=== PATIENT | female | born 1980 | race Caucasian/White ===

== ENCOUNTER 2018-01-10 10:56 | Emergency (ER) | payer BC, OTHER ==
--- NOTE | 2018-01-10 11:15 | ED ---
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 This pt admits she was having to push/pull and her core was jostled. She developed acute lower back pain immediately after the event. This has been getting progressively worse despite her trying to rest. She feels a swelling of her tissue over this area which is tender to touch. Pain is also worse here with forward flexion and Valsalva such as sneezing, coughing, and engaging her abdominal muscles. When these actions happen, she gets an acute sharp shooting pain however denies radicular pain into her buttocks or lower extremities. Denies numbness tingling or weakness in the lower extremities and no change in bowel or bladder habits. She has a history of lower back muscle spasms which she treats with half at dose of Xanax as needed. This treatment usually takes care of her back spasm issues however has not been improving her back pain since acute injury this week. She's also tried ibuprofen and ice without relief. She is concerned something more serious could be at play such as stenosis or disc herniation. Last menstrual period -she is finishing now. has a vasectomy. - History of Current Complaint Chief Complaint: EDBackInjuryPain Stated Complaint: BACK PAIN Time Seen by Provider: 01/10/18 11:07 Hx Obtained From: Patient Pain Intensity: 6 - Allergies/Home Medications Allergies/Adverse Reactions: Allergies Allergy/AdvReac Type Severity Reaction Status Date / Time ibuprofen Allergy Bleeding Verified 01/10/18 11:30 Home Medications: Home Medications ALPRAZolam TAB* [Xanax TAB*] 0.5 mg PO TID PRN 01/10/18 [History Confirmed 01/10] Citalopram TAB* [CeleXA TAB*] 20 mg PO DAILY 01/10/18 [History Confirmed ] Levothyroxine TAB* [Synthroid TAB*] 250 mcg PO DAILY 01/10/18 [History Confirmed 01/10/18] Lisinopril TAB* [Prinivil TAB*] 5 mg PO DAILY 01/10/18 [History Confirmed ] Multivitamins/Minerals TAB* [Theragran/minerals TAB*] 1 tab PO DAILY 01/10/18 [ History Confirmed 01/10/18] Zolpidem TAB* [Ambien TAB*] 10 mg PO BEDTIME 01/10/18 [History Confirmed ] PMH/Surg Hx/FS Hx/Imm Hx Previously Healthy: Yes Endocrine/Hematology History: Reports: Hx Thyroid Disease - hypothyroidism - 250mcg levothyroxine Cardiovascular History: Denies: Hx Pacemaker/ICD Musculoskeletal History: Reports: Hx Back Problems - h/o muscle spasms in lumbar spine region, Other Musculoskeletal History - CTS B/L Sensory History: Denies: Hx Hearing Aid Psychiatric History: Denies: Hx Panic Disorder - Surgical History Surgery Procedure, Year, and Place: TONSILECTOMY, OVARY & FALLOPIAN TUBE REMOVED RIGHT. GASTRIC BYPASS 2010 - Immunization History Immunizations Up to Date: Yes Infectious Disease History: No Infectious Disease History: Denies: Traveled Outside the [place] in Last 30 Days - Family History Known Family History: Positive: Cardiac Disease, Hypertension, Diabetes, Other - arthritis - Social History Occupation: Employed Full-time - RN in ED Lives: With Family Alcohol Use: Weekly Hx Substance Use: No Substance Use Type: Reports: None Hx Tobacco Use: Yes - not currently Smoking Status (MU): Former Smoker - many years ago Review of Systems Constitutional: Negative Negative: Fever, Chills Gastrointestinal: Negative Genitourinary: Negative Negative: incontinence Positive: Arthralgia, Decreased ROM - 2ndry to pain, Edema. Negative: Myalgia Skin: Negative Neurological: Negative Psychological: Normal All Other Systems Reviewed And Are Negative: Yes Physical Exam Triage Information Reviewed: Yes Vital Signs On Initial Exam: Initial Vitals Temp Pulse Resp BP Pulse Ox 98.5 F 101 13 161/82 98 01/10/18 11:04 01/10/18 11:04 01/10/18 11:04 01/10/18 11:04 01/10/18 11:04 Vital Signs Reviewed: Yes Appearance: Positive: Well-Appearing, Pain Distress - mild to moderate Skin: Positive: Warm, Skin Color Reflects Adequate Perfusion, Dry - no erythema , no ecchymosis over effected area Head/Face: Positive: Normal Head/Face Inspection Eyes: Positive: Normal, EOMI, Conjunctiva Clear ENT: Positive: Normal ENT inspection, Hearing grossly normal, Pharynx normal - mucosa moist Cardiovascular: Positive: Pulses are Symmetrical in both Upper and Lower Extremities. Negative: Leg Edema Left, Leg Edema Right Musculoskeletal: Positive: Limited @ - lumbar flexion limited d/t pain in effected area of lower lumbar spine, Pain @ - TTP w/ mild edema of tissue overlying spinous pp of lower lumbar spine Neurological: Positive: Normal, Sensory/Motor Intact, Alert, Oriented to Person Place, Time, CN Intact II-III Psychiatric: Positive: Normal - concerned but calm, pleasant and cooperative Diagnostics - Vital Signs Vital Signs Temp Pulse Resp BP Pulse Ox 01/10/18 11:04 98.5 F 101 13 161/82 98 - Laboratory Lab Statement: Any lab studies that have been ordered have been reviewed, and results considered in the medical decision making process. Back Pain Course/Dx - Course Course Of Treatment: Discussed pain medication with pt - offered NSAID and/or steroid - pt prefers toradol IM here and ibuprofen PO for d/c. She will use lidoderm pain patches as well until seen by PCP this week. Reviewed the condition as well as movements to avoid, etc. She will return to ED if danger s/ sx present. - Diagnoses Provider Diagnoses: Spondylolisthesis, lumbar region Discharge - Sign-Out/Discharge Documenting (check all that apply): Discharge/Admit/Transfer - Discharge Plan Condition: Stable Disposition: HOME Prescriptions: Lidocaine PATCH 5%* [Lidoderm 5% Patch*] 1 patch TRANSDERM DAILY #30 patch Patient Education Materials: Spondylolisthesis (ED) Forms: *Work Release Referrals: Bruce Varghese MD [Primary Care Provider] - Additional Instructions: Rest, ice, and avoid lifting, bending, twisting, prolonged standing/sitting/ walking until cleared by PCP. Use lidoderm patches as needed for pain You may continue ibuprofen 800mg every 8 hours with food alternating with acetaminophen extra strength as needed for pain Follow-up with PCP this week *If you develop numbness, tingling, weakness or change in bowel/bladder changes , return to ED - Billing Disposition and Condition Condition: STABLE Disposition: HOME
--- NOTE | 2018-01-10 11:35 | RAD ---
INDICATION: Lumbar spine pain status post injury. COMPARISON: Comparison is made with a prior x-ray study of the lumbar spine from May 06, 2004. TECHNIQUE: Contiguous axial sections were obtained beginning above the T11 vertebra and continuing through the L5-S1 disc space. Images were reconstructed in the sagittal and coronal planes. FINDINGS: There is a mild lumbar scoliosis convex toward the left side. In addition there is mild anterior listhesis of L5 relative to S1 of approximately 4 mm consistent with grade 1 anterior spondylolisthesis. There is bilateral spondylolysis at the L5 level which appears chronic. No other fractures are seen. At the L3-L4 level there is a mild broad-based disc bulge and mild hypertrophic changes within the facet joints. No spinal canal narrowing is present. There is mild neural foraminal narrowing on the left side. At the L4-L5 level there is a minimal broad-based disc bulge and mild hypertrophic changes within the facet joints. No spinal canal narrowing is present. Neural foramen appear patent on both sides. At the L5-S1 level there is a mild broad-based disc bulge and mild hypertrophic changes within the facet joints. No spinal canal narrowing is present. There is mild neural foraminal narrowing on the right side and moderate neural foraminal narrowing on the left side. There are 2 left renal calculi visualized. The larger calculus is in a lower pole calyx measuring 0.8 cm in size. IMPRESSION: 1. GRADE 1 ANTERIOR SPONDYLOLISTHESIS AT THE L5-S1 LEVEL AND BILATERAL SPONDYLOLYSIS AT THE L5 LEVEL. 2. MILD DEGENERATIVE DISC DISEASE AND FACET OSTEOARTHRITIS DESCRIBED. 3. NONOBSTRUCTING LEFT RENAL CALCULI.
[2018-01-10] MEDS ORDERED: Lidocaine PATCH 5%* 1 PATCH TRANSDERM SCH (12:00)
[2018-01-10] MEDS ORDERED: predniSONE TAB* 20 MG PO ONE (12:05)
[2018-01-10] MEDS ORDERED: Ketorolac INJ* 60 MG/2 ML VIAL IM ONE (12:06)
[2018-01-10 12:32] VITALS: BP 167/117
[2018-01-10] MEDS ORDERED: Lidocaine Patch REMOVE* 1 NOTE MISC PATCH OFF SCH (21:00)
== END 2018-01-10 12:43 | disposition home or self-care (01) ==
LOC: ED 10:56
DX: M43.16 Spondylolisthesis, lumbar region (principal); E03.9 Hypothyroidism, unspecified; Z87.891 Personal history of nicotine dependence
CPT/HCPCS: 72131; 96372; 99282; A9270-GY; J1885

== ENCOUNTER 2018-04-17 15:18 | Emergency (ER) | payer BC, OTHER ==
[2018-04-17 15:48] VITALS: BP 149/90
--- NOTE | 2018-04-17 16:17 | UC ---
Throat Pain/Nasal Wily HPI - HPI Summary HPI Summary: 37 yo female presents with sore throat, productive cough, sinus pain/pressure/ congestion and hot/cold sensations for the last 3 weeks. She has been taking mucinex, nasonex, robitussin, OTC cold and flu medication, and claritin with no relief. Denies SOB, chest pain, abdominal pain, n/v/d/c. - History of Current Complaint Chief Complaint: UCRespiratory Stated Complaint: SINUS CONGESTION Time Seen by Provider: 04/17/18 16:09 Hx Obtained From: Patient Hx Last Menstrual Period: [id number] Onset/Duration: Gradual Onset Severity: Moderate Pain Intensity: 6 Pain Scale Used: 0-10 Numeric Cough: Productive - Allergies/Home Medications Allergies/Adverse Reactions: Allergies Allergy/AdvReac Type Severity Reaction Status Date / Time ibuprofen Allergy Bleeding Verified 04/17/18 15:49 PMH/Surg Hx/FS Hx/Imm Hx Endocrine History: Hypothyroidism Cardiovascular History: Hypertension Psychological History: Anxiety - Surgical History Surgical History: Yes Surgery Procedure, Year, and Place: TONSILECTOMY,. OVARY & FALLOPIAN TUBE REMOVED RIGHT,. Left part oophrectomy. GASTRIC BYPASS 2010,. 3 C-SECTIONS,. SMALL BOWEL OBSTRUCTIONS DURING WITH REPAIR DONE AT THAT TIME;. HERNIA REPAIR, - Family History Known Family History: Positive: Cardiac Disease, Hypertension, Diabetes, Other - arthritis - Social History Occupation: Employed Full-time Lives: With Family Alcohol Use: Weekly Substance Use Type: None Smoking Status (MU): Former Smoker Review of Systems Constitutional: Negative Skin: Negative Eyes: Negative ENT: Sore Throat, Ear Ache, Nasal Discharge, Sinus Congestion, Sinus Pain/ Tenderness Respiratory: Cough Cardiovascular: Negative Gastrointestinal: Negative Neurological: Negative Psychological: Negative All Other Systems Reviewed And Are Negative: Yes Physical Exam - Summary Physical Exam Summary: GENERAL: NAD. WDWN. Mildly ill appearing SKIN: No rashes, sores, lesions, or open wounds. HEENT: Head: AT/NC Eyes: EOM intact. Conjunctiva clear without inflammation or discharge. Ears: Hearing grossly normal. TMs intact, no bulging, erythema, or edema. Nose: Nasal mucosa moderately swollen and erythematous with yellow/ clear discharge. Moderate TTP maxillary and frontal sinus. Throat: Posterior oropharynx without exudates, erythema, or tonsillar enlargement. Uvula midline. NECK: Supple. Moderately TTP RIGHT tonsillar LAD. CHEST: CTAB. No r/r/w. No accessory muscle use. Breathing comfortably and in no distress. CV: RRR. Without m/r/g. Pulses intact. Brisk cap refill. NEURO: Alert. CN II-XII grossly intact. PSYCH: Age appropriate behavior. Triage Information Reviewed: Yes Vital Signs: Initial Vital Signs Temp 98.5 F 04/17/18 15:41 Pulse 88 04/17/18 15:41 Resp 18 04/17/18 15:41 BP 149/90 04/17/18 15:41 Pulse Ox 98 04/17/18 15:41 Vital Signs Reviewed: Yes Throat Pain/Nasal Course/Dx - Course Course Of Treatment: Sinusitis - Differential Dx/Diagnosis Provider Diagnoses: Sinusitis Discharge - Sign-Out/Discharge Documenting (check all that apply): Patient Departure - Discharge Plan Condition: Stable Disposition: HOME Prescriptions: Amoxicillin/Clavulanate TAB* [Augmentin TAB 875*] 875 mg PO BID #20 tab Fluconazole 100 MG TAB* [Diflucan 100 MG TAB*] 100 mg PO DAILY #2 tab Patient Education Materials: Sinusitis (ED) Referrals: Bruce Varghese MD [Primary Care Provider] - Additional Instructions: If you develop a fever, shortness of breath, chest pain, new or worsening symptoms - please call your PCP or go to the ED. Your blood pressure was high at todays visit. Please see your primary provider within 4 weeks for recheck and re-evaluation. - Billing Disposition and Condition Condition: STABLE Disposition: Home
== END 2018-04-17 16:20 | disposition home or self-care (01) ==
LOC: UCEAST 15:18
DX: J32.9 Chronic sinusitis, unspecified (principal); Z88.6 Allergy status to analgesic agent; Z82.49 Family history of ischemic heart disease and other diseases of the circulatory system; Z83.3 Family history of diabetes mellitus; Z82.61 Family history of arthritis; Z87.891 Personal history of nicotine dependence
CPT/HCPCS: 99212; G0463

== ENCOUNTER 2019-01-25 05:40 | Day surgery (SDC) | payer BC ==
[~2019-01-25 05:40] MED LIST: Buffered Lidocaine 1% SYRIN* 1 ML/SYRINGE INTRADERM ONE
[2019-01-25] MEDS ORDERED: Lactated Ringers 1000 ML Bag* 1,000 ML IV SCH (06:00)
[2019-01-25] MEDS ORDERED: Famotidine IV* 10 MG/ML 2 ML (20 mg) IV ONE (06:00)
[2019-01-25] MEDS ORDERED: Dexamethasone IV* 4 MG/ML 1 ML (4 MG) IV SLOW PU ONE (06:00)
[2019-01-25] MEDS ORDERED: Buffered Lidocaine 1% SYRIN* 1 ML/SYRINGE INTRADERM ONE (06:15)
[2019-01-25] MEDS ORDERED: Famotidine IV* 10 MG/ML 2 ML (20 mg) ONE (06:15)
[2019-01-25] MEDS ORDERED: Dexamethasone IV* 4 MG/ML 1 ML (4 MG) ONE (06:15)
[2019-01-25] MEDS ORDERED: Bupivacaine 0.25% SDV PF* 10 ML VIAL INJ ONE (07:10)
[2019-01-25] MEDS ORDERED: Ketorolac INJ* 30 MG/ML 1 ML VIAL ONE (07:28)
[2019-01-25] MEDS ORDERED: Ondansetron INJ* 2 MG/ML VIAL ONE (07:28)
[2019-01-25] MEDS ORDERED: fentaNYL* 50 MCG/ML 5 ML VIAL (250 MCG VIAL) ONE (07:28)
[2019-01-25] MEDS ORDERED: Propofol* 10 MG/ML 20 ML BTL ONE (07:28)
[2019-01-25] MEDS ORDERED: Midazolam* 1 MG/ML 5 ML VIAL (5 MG) ONE (07:28)
[2019-01-25] MEDS ORDERED: Scopolamine 1.5 mg* PATCH ONE (07:30)
[2019-01-25] MEDS ORDERED: Lidocaine 2% PF * 5 ML VIAL ONE (07:36)
[2019-01-25] MEDS ORDERED: EPHEDrine (Pressors)* 50 MG/ML VIAL ONE (07:54)
[2019-01-25] MEDS ORDERED: Scopolamine 1.5 mg* PATCH TRANSDERM SCH (08:00)
[2019-01-25] MEDS ORDERED: Naloxone* 0.4 MG/ML 1 ML VIAL IV PRN (08:35)
[2019-01-25] MEDS ORDERED: oxyCODONE/Acetamin 5/325 MG* TAB PO PRN (08:35)
[2019-01-25] MEDS ORDERED: DiMENhydriNATE IV* 50 MG/ML VIAL IV PUSH PRN (08:35)
[2019-01-25] MEDS ORDERED: Ondansetron INJ* 2 MG/ML VIAL IV PRN (08:35)
[2019-01-25 08:47] VITALS: BP 132/83
--- NOTE | 2019-01-25 09:44 | OP ---
DATE OF OPERATION: 01/25/19 - [facility] DATE OF : 76 SURGEON: Santiago Lewis MD IRON WORKER APPRENTICE: None. ANESTHESIOLOGIST: Dr. Orellana. ANESTHESIA: General. PRE-OP DIAGNOSIS: Left carpal tunnel syndrome. POST-OP DIAGNOSIS: Left carpal tunnel syndrome. OPERATIVE PROCEDURE: Left endoscopic carpal tunnel release. ESTIMATED BLOOD LOSS: 1 mL. COMPLICATIONS: None. FINDINGS: See above and below. DESCRIPTION OF PROCEDURE: Ovi was seen in the preoperative holding area. The correct side, site, and procedure were identified. We came back to the operating room where the arm was prepped and draped in the usual fashion and timeout was performed. The arm was exsanguinated with the Esmarch and the tourniquet was inflated to 225 mmHg. I made a 1 cm incision starting just at the ulnar aspect of the palmaris longus tendon. Dissection was carried down bluntly through the subcutaneous tissue and then the distal antebrachial fascia was split promptly with tenotomy scissors transversely in line with the incision. A two pronged skin hook was placed. The synovial stripper followed by the dilators were used. The Q-tip was used to dry out the canal. I then placed the MicroAire endoscopic carpal tunnel system. Once I had this positioned in the appropriate location, I deployed and pulled the trigger to elevate the blade. I then released the ligament by pulling back proximally. Once I completed everything, I confirmed this by placing the Scottie retractor in the carpal tunnel and placing the camera back into the carpal tunnel. The ligament edges had good distance between the two edges of them, everything was looking good. I checked the decompression proximally and distally under direct visualization. I released the distal antebrachial fascia proximally. Wound was irrigated out and closed with 4-0 nylon suture. 0.25% plain Marcaine was infiltrated, soft dressing was applied, and she was taken to the recovery room in stable condition. [id number]/[facility] #: [id number] [facility] HOSPITALHawk
== END 2019-01-25 09:24 | disposition home or self-care (01) ==
LOC: OR 05:40
PROVIDERS: ATTEND Orthopaedic Surgery Hand Surgery
DX: G56.02 Carpal tunnel syndrome, left upper limb (principal); I10 Essential (primary) hypertension; E03.9 Hypothyroidism, unspecified; E78.00 Pure hypercholesterolemia, unspecified; E11.9 Type 2 diabetes mellitus without complications; Z87.891 Personal history of nicotine dependence; F41.8 Other specified anxiety disorders
CPT/HCPCS: 81025; A9270-GY; J1100; J1885; J2250; J2405; J2704; J3010; J3490

== ENCOUNTER 2019-09-26 06:43 | Emergency (ER) | payer BC ==
[2019-09-26 07:12] LABS: Influenza A Molecular NEGATIVE (Negative); Influenza B Molecular NEGATIVE (Negative)
--- NOTE | 2019-09-26 07:13 | ED ---
Influenza-Like Illness - HPI Summary HPI Summary: 38-year-old female presents with flulike symptoms last night. Child was diagnosed with the flu b yesterday. States she's been having a fever. she admits to nausea and vomiting. She admits to sinus congestion and occasional cough. She states she has muscle aches all over her body. She states she's been taking Zofran as needed for the nausea. - History of Current Complaint Chief Complaint: EDFluSymptoms Time Seen by Provider: 09/26/19 07:06 - Allergy/Home Medications Allergies/Adverse Reactions: Allergies Allergy/AdvReac Type Severity Reaction Status Date / Time ferumoxytol [From Feraheme] Allergy Itching Verified 09/17/19 12:48 PMH/Surg Hx/FS Hx/Imm Hx Endocrine/Hematology History: Reports: Hx Diabetes - type 2, Hx Thyroid Disease - hypo, Hx Anemia Cardiovascular History: Reports: Hx Hypertension - on meds Denies: Hx Pacemaker/ICD, Other Cardiovascular Problems/Disorders Respiratory History: Denies: Hx Asthma, Other Respiratory Problems/Disorders GI History: Denies: Other GI Disorders History: Reports: Hx Kidney Stones - current Denies: Hx Renal Disease Musculoskeletal History: Reports: Hx Back Problems - h/o muscle spasms in lumbar spine region, Other Musculoskeletal History Sensory History: Denies: Hx Contacts or Glasses, Hx Hearing Aid Opthamlomology History: Denies: Hx Contacts or Glasses Neurological History: Denies: Other Neuro Impairments/Disorders Psychiatric History: Reports: Hx Anxiety, Hx Depression - on meds Denies: Hx Panic Disorder - Surgical History Surgery Procedure, Year, and Place: TONSILECTOMY,. OVARY & FALLOPIAN TUBE REMOVED RIGHT,2004, [facility]. Left part oophrectomy. 2996, [facility]. GASTRIC BYPASS 2010,[facility]. 3 C-SECTIONS,. SMALL BOWEL OBSTRUCTIONS DURING C- SECTION WITH REPAIR DONE AT THAT TIME;. HERNIA REPAIR,. CARPAL TUNNEL LEFT WRIST Hx Anesthesia Reactions: Yes - nausea Infectious Disease History: No Infectious Disease History: Denies: Traveled Outside the [place] in Last 30 Days - Family History Known Family History: Positive: Cardiac Disease, Hypertension, Diabetes, Other - arthritis - Social History Alcohol Use: Occasionally Alcohol Amount: 4 drinks a week Hx Substance Use: No Substance Use Type: Reports: None Hx Tobacco Use: Yes - not currently Smoking Status (MU): Former Smoker Amount Used/How Often: 1/2 pack a day for 8 yrs Review of Systems Positive: Fever Positive: Nasal Discharge Negative: Chest Pain Negative: Shortness Of Breath Positive: Vomiting, Nausea All Other Systems Reviewed And Are Negative: Yes Physical Exam Triage Information Reviewed: Yes Vital Signs On Initial Exam: Initial Vitals Temp Pulse Resp BP Pulse Ox 97.7 F 88 22 130/82 94 09/26/19 06:45 09/26/19 06:45 09/26/19 06:45 09/26/19 06:45 09/26/19 06:45 Vital Signs Reviewed: Yes Appearance: Positive: Ill-Appearing Skin: Positive: Warm, Dry Head/Face: Positive: Normal Head/Face Inspection Eyes: Positive: Normal, Conjunctiva Clear ENT: Positive: Pharynx normal Respiratory/Lung Sounds: Positive: Clear to Auscultation, Breath Sounds Present Cardiovascular: Positive: Normal, RRR Musculoskeletal: Positive: Normal Neurological: Positive: Normal Psychiatric: Positive: Normal Procedures - Sedation Patient Received Moderate/Deep Sedation with Procedure: No Diagnostics - Vital Signs Vital Signs Temp Pulse Resp BP Pulse Ox 09/26/19 06:45 97.7 F 88 22 130/82 94 - Laboratory Lab Results: Lab Results 09/26/19 Range/Units 06:45 Influenza A (Rapid) Pending Influenza B (Rapid) Pending Lab Statement: Any lab studies that have been ordered have been reviewed, and results considered in the medical decision making process. Flu Symptom Course/Dx - Course Course Of Treatment: 38-year-old female presents with flulike symptoms last night. Child was diagnosed with the flu b yesterday. States she's been having a fever. she admits to nausea and vomiting. She admits to sinus congestion and occasional cough. She states she has muscle aches all over her body. She states she's been taking Zofran as needed for the nausea. on exam appears ill. lungs CTA. flu negative. will give ppx dose of tamiflu. also ordered for rest of family who are not currently sick. patient understand and agrees with plan. - Diagnoses Differential Diagnosis/HQI/PQRI: Positive: Influenza, Pneumonia, Upper Respiratory Infection Provider Diagnoses: Viral syndrome Discharge ED - Sign-Out/Discharge Documenting (check all that apply): Patient Departure - Discharge Plan Condition: Good Disposition: HOME Prescriptions: Oseltamivir CAP* [Tamiflu CAP*] 75 mg PO DAILY #20 cap Patient Education Materials: Viral Syndrome (ED) Referrals: Bruce Varghese MD [Primary Care Provider] - Additional Instructions: take tamiflu once a day for 7 days per person Take Tylenol or ibuprofen for every 6 hours Return to ED if develop any new or worsening symptoms - Billing Disposition and Condition Condition: GOOD Disposition: Home
[2019-09-26] MEDS ORDERED: Oseltamivir CAP* 75 MG CAP PO ONE (07:14)
--- OUTSIDE RECORDS SUMMARY | 2019-09-26 07:14 | XMS REPORT | Continuity of Care Document ---
:1980 External Reference #:[id number] Author Name Ysabel Chaney M.D. 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 Onset: 01/26/2018 Localized superficial swelling of skin Ysabel Chaney M.D. Onset: 09/13/2019 Wrist joint pain Ysabel Chaney M.D. Onset: 09/13/2019 Social History Type Date Description Comments Sex Unknown ETOH Use Occasionally consumes alcohol Tobacco Use Start: Unknown End: Patient is a former smoker Unknown Recreational Drug Use Denies Drug Use Smoking Status Reviewed: 09/13/19 Patient is a former smoker Exercise Type/Frequency Does not exercise Allergies, Adverse Reactions, Alerts Active Allergies Reaction Severity Comments Date Feraheme 02/09/2019 Inactive Allergies NKDA 01/23/2018 Medications Active Medications SIG Qnty Indications Ordering Provider Date Lisinopril 1 hs Jose Armando, 20mg Tablets MERCEDES Gilbert Alprazolam 1 tab every 6 Jose Armando, 0.5mg Tablets hours as needed MERCEDES Gilbert for muscle spasm Multi Vitamin Daily 1 by mouth every Unknown day Tablets Ambien one by mouth at Unknown 5mg Tablets bedtime as needed for sleep Glipizide take one tablet Unknown 5mg Tablets by mouth twice a day Levothyroxine 250 mcg 1 tab by mouth Unknown once daily Citalopram 30 MG 1 tab by mouth Unknown daily Immunizations Description No Information Available Vital Signs Date Vital Result Comment 09/13/2019 3:31pm Height 64 inches 5'4" Weight 215.00 lb Heart Rate 78 /min BP Systolic Sitting 154 mmHg BP Diastolic Sitting 98 mmHg Respiratory Rate 16 /min Pain Level 3 O2 % BldC Oximetry 98 % BMI (Body Mass Index) 36.9 kg/m2 03/23/2019 1:01pm Height 65 inches 5'5" Weight 200.00 lb Heart Rate 88 /min BP Systolic 158 mmHg BP Diastolic 100 mmHg Respiratory Rate 14 /min Pain Level 0 BMI (Body Mass Index) 33.3 kg/m2 Results Description No Information Available Procedures Description No Information Available Medical Devices Description No Information Available Encounters Description No Information Available Assessments Date Code Description Provider 09/13/2019 W19.xxxA Unspecified fall, initial encounter Ysabel Chaney M.D. 09/13/2019 M25.532 Pain in left wrist Ysabel Chaney M.D. 09/13/2019 R22.32 Localized swelling, mass and lump, left upper Ysabel Chaney M.D. limb 03/23/2019 G56.03 Carpal tunnel syndrome, bilateral upper limbs Santiago Lewis MD 03/23/2019 Z47.89 Encounter for other orthopedic aftercare Santiago Lewis MD Plan of Treatment 09/13/2019 - Ysabel Chaney M.D.W19.xxxA Unspecified fall, initial [id number] Pain in left wristNew Xrays:MRI Wrist Left W/O, Ordered: Follow up:Follow up: after testing is completed - mri left [id number] Localized swelling, mass and lump, left upper limb Functional Status Description No Information Available Mental Status Description No Information Available Referrals Description No Information Available
[2019-09-26 07:29] VITALS: BP 122/76
== END 2019-09-26 07:23 | disposition home or self-care (01) ==
LOC: ED 06:43
DX: B34.9 Viral infection, unspecified (principal); E11.9 Type 2 diabetes mellitus without complications; Z79.84 Long term (current) use of oral hypoglycemic drugs; E03.9 Hypothyroidism, unspecified; I10 Essential (primary) hypertension; F41.9 Anxiety disorder, unspecified; F32.9 Major depressive disorder, single episode, unspecified; Z88.8 Allergy status to other drugs, medicaments and biological substances; Z87.891 Personal history of nicotine dependence
CPT/HCPCS: 99282; A9270-GY